=== PATIENT | male | born 1955 | race Caucasian/White ===

== ENCOUNTER 2018-03-04 20:28 | Inpatient (IN) | payer OTHER ==
[2018-03-04] MEDS ORDERED: Acetaminophen TAB* 325 MG PO ONE (20:50)
[2018-03-04] MEDS ORDERED: Albuterol/Ipratropium NEB.SOL* Albuterol 2.5 MG/Ipratropium 0.5 MG 3 ML INH ONE (20:50)
[2018-03-04] MEDS: NS 0.9% 1000 ML*IV.FLUID IV ONE ×2 (21:19→23:59)
--- NOTE | 2018-03-04 21:42 | ED ---
Jose Calvillo Tecjoon, scribed for Arben Charles MD on 03/04/18 at 2054 . HPI Febrile Illness - HPI Summary HPI Summary: This patient is a 62 year old male presenting to [facility] accompanied by daughter with a chief complaint of febrile illness since approx. 8 days ago. The pain is rated 0/10 in severity. Symptoms aggravated by nothing. Symptoms alleviated by nothing. Patient additionally reports diaphoretic, chills, cough, SOB, rhinorrhea, sore throat, nausea. Patient denies diarrhea - History of Current Complaint Chief Complaint: EDShortnessOfBreath Time Seen by Provider: 03/04/18 20:39 Hx Obtained From: Patient Onset/Duration: Started Days Ago - 8, Still Present Timing: Constant Initial Severity: Moderate Current Severity: Moderate Pain Intensity: 0 Pain Scale Used: 0-10 Numeric Aggravating Factors: Nothing Alleviating Factors: Nothing Associated Signs and Symptoms: Negative - diarrhea, Other: - diaphoresis, chills , cough, SOB, rhinorrhea, sore throat, nausea - Allergy/Home Medications Allergies/Adverse Reactions: Allergies Allergy/AdvReac Type Severity Reaction Status Date / Time No Known Allergies Allergy Verified 03/04/18 20:32 Home Medications: Home Medications Albuterol HFA INHALER* [Ventolin HFA Inhaler*] 2 puff INH Q4H PRN 03/04/18 [ History Confirmed 03/04/18] Aspirin 81 mg CHEW TAB* [Aspirin Low Dose TAB*] 81 mg PO DAILY 03/04/18 [ History Confirmed 03/04/18] Cilostazol TAB* [Pletal TAB*] 100 mg PO BID 03/04/18 [History Confirmed 03/04/18 ] Levothyroxine TAB* [Synthroid TAB*] 75 mcg PO DAILY 03/04/18 [History Confirmed 03/04/18] Lisinopril/HCTZ 10/12.5(NF) [Zestoretic 10/12.5(NF)] 1 tab PO DAILY 03/04/18 [ History Confirmed 03/04/18] Metoprolol Succinate XL TAB* [Toprol XL TAB*] 25 mg PO DAILY 03/04/18 [History Confirmed 03/04/18] Simvastatin (NF) [Zocor (NF)] 40 mg PO DAILY 03/04/18 [History Confirmed ] PMH/Surg Hx/FS Hx/Imm Hx Previously Healthy: No Endocrine/Hematology History: Reports: Hx Thyroid Disease Denies: Hx Diabetes Cardiovascular History: Reports: Hx Hypercholesterolemia, Hx Hypertension Respiratory History: Reports: Hx Chronic Obstructive Pulmonary Disease (COPD) Opthamlomology History: Denies: Hx Legally Blind EENT History: Denies: Hx Deafness Infectious Disease History: No Infectious Disease History: Denies: Traveled Outside the [place] in Last 30 Days - Family History Known Family History: Positive: Hypertension - Social History Lives: With Family Alcohol Use: None Hx Tobacco Use: Yes Smoking Status (MU): Former Smoker Type: Cigarettes Review of Systems Positive: Fever, Chills, Skin Diaphoresis Positive: Sore Throat, Nasal Discharge Positive: Shortness Of Breath, Cough Positive: Nausea. Negative: Diarrhea All Other Systems Reviewed And Are Negative: Yes Physical Exam - Summary Physical Exam Summary: Appearance: Well appearing, no pain distress Skin: hot and light diaphoresis Head/face: normal Eyes: EOMI, SVITLANA ENT: normal Neck: supple, non-tender Respiratory: Bronchial breath sounds in the periphery right lung and left upper lobe, Occasional wheeze Cardiovascular: tachycardic, but regular, pulses symmetrical Abdomen: No lower abd tenderness Bowel Sounds: present Musculoskeletal: normal, strength/ROM intact Neuro: normal, sensory motor intact, A&Ox3 Triage Information Reviewed: Yes Vital Signs On Initial Exam: Initial Vitals Temp Pulse Resp BP Pulse Ox 101.9 F 109 22 141/90 91 03/04/18 20:28 03/04/18 20:28 03/04/18 20:28 03/04/18 20:28 03/04/18 20:28 Vital Signs Reviewed: Yes Diagnostics - Vital Signs Vital Signs Temp Pulse Resp BP Pulse Ox 03/04/18 20:28 101.9 F 109 22 141/90 91 - Laboratory Lab Statement: Any lab studies that have been ordered have been reviewed, and results considered in the medical decision making process. Course/Dx - Course Course Of Treatment: This patient is a 62 year old male presenting to [facility] accompanied by daughter with a chief complaint of febrile illness since approx. 8 days ago. An EKG, taken 2041, reveals 92 BPM, single PVC, normal axis, nonspecific ST, diffuse Q waves. CXR ordered. Bloodwork Obtained. In the ED course the patient was given Tylenol, Albuterol. Patient will be diagnosed with sepsis and influenza-like illness. Patient will be signed out to Dr. Sin, awaiting CXR and labwork - Febrile Illness Differential Diagnoses: Pneumonia, Sepsis, Other: - flu, bronchitis/viral - Diagnoses Provider Diagnoses: Influenza-like illness, Sepsis Discharge - Sign-Out/Discharge Documenting (check all that apply): Sign-Out Patient Signing out patient TO: Jani Sin - Discharge Plan Condition: Stable Discharge Disposition Comment: signed out to Dr. Sin Referrals: Colleen Lopez, SLITTER CREASER SLOTTER OPERATOR [Primary Care Provider] - - Billing Disposition and Condition Condition: STABLE The documentation as recorded by the Jose tam Tecjoon accurately reflects the service I personally performed and the decisions made by , Arben Charles MD.
[2018-03-04 21:47] LABS: INR 0.97 (0.77-1.02)
--- NOTE | 2018-03-04 21:54 | RAD ---
HISTORY: Cough, shortness of breath COMPARISONS: August 22, 2012 VIEWS: 4: Frontal dual-energy and lateral views of the chest. FINDINGS: CARDIOMEDIASTINAL SILHOUETTE: The cardiomediastinal silhouette is normal. SUNNY: The sunny are normal. PLEURA: The costophrenic angles are sharp. No pleural abnormalities are noted. LUNG PARENCHYMA: There is hyperinflation. There is patchy alveolar opacification of the right lower lung. ABDOMEN: The upper abdomen is clear. There is no subphrenic gas. BONES AND SOFT TISSUES: No bone or soft tissue abnormalities are noted. OTHER: None. IMPRESSION: COPD. PATCHY AIRSPACE DISEASE OF THE RIGHT LOWER LUNG. RECOMMEND FOLLOW-UP UNTIL RESOLUTION TO EXCLUDE UNDERLYING PULMONARY PARENCHYMAL PATHOLOGY.
[2018-03-04 21:56] LABS: EGFR Non-African American 58.2 (>60)
[2018-03-04 21:58] LABS: ABS Basophils 0.1 10^3/ul (0-0.2); ABS Eosinophils 0 10^3/ul (0-0.6); ABS Lymphocytes 0.9 10^3/ul (1.0-4.8); ABS Monocytes 1.2 10^3/ul (0-0.8); ABS Neutrophils 8.9 10^3/ul (1.5-7.7); ABS Nucleated RBC 0 10^3/ul; Eosinophil % 0 % (0-6); Hematocrit 47 % (42-52); Hemoglobin 16.9 g/dl (14.0-18.0); Lymphocyte % 8.5 % (25-47); Mean Corpuscular HGB Conc 36 g/dl (31-36); Mean Corpuscular Hemoglobin 32 pg (27-31); Mean Corpuscular Volume 89 fL (80-94); Mean Platelet Volume 7.5 um3 (7.4-10.4); Nucleated Red Blood Cells % 0; Platelet Count 213 10^3/ul (150-450); Red Blood Count 5.36 10^6/ul (4.0-5.4); Red Cell Distribution Width 13 % (10.5-15); White Blood Count 11.1 10^3/ul (3.5-10.8)
[2018-03-04] MEDS ORDERED: methylPREDNISolone 125 MG* 2 ML VIAL IV ONE (22:00)
[2018-03-04] MEDS ORDERED: Levofloxacin 750 MG IVPREMIX(* 750 MG/150 ML BAG IVPB ONE (22:00)
[2018-03-04] MEDS ORDERED: Magnesium Sulfate 2 GM IV* 2 GM/50 ML BAG IVPB ONE (22:01)
[2018-03-04] MEDS ORDERED: Potassium Chlor TAB* 20 MEQ TAB.ER PO ONE (22:03)
[2018-03-04] MEDS ORDERED: Albuterol 2.5 MG/3 ML NEB.SOL* (0.083%) ONE (22:16)
[2018-03-04] MEDS: Albuterol 2.5 MG/3 ML NEB.SOL* (0.083%) INH SCH (22:19)
[2018-03-04] MEDS ORDERED: Ondansetron INJ* 2 MG/ML VIAL IV PRN (22:36)
[2018-03-04] MEDS ORDERED: Docusate CAP* 100 MG PO PRN (22:36)
[2018-03-04] MEDS ORDERED: Senna TAB PO PRN (22:36)
[2018-03-04] MEDS ORDERED: Al Hydrox/Mg Hydrox/Simet LIQ* 30 ML UDC PO PRN (22:36)
[2018-03-04] MEDS ORDERED: NS 0.9% 1000 ML* 1,000 ML IV ONE (22:38)
[2018-03-04] MEDS ORDERED: Albuterol 2.5 MG/3 ML NEB.SOL* (0.083%) INH PRN (22:39)
[2018-03-04] MEDS ORDERED: Albuterol/Ipratropium NEB.SOL* Albuterol 2.5 MG/Ipratropium 0.5 MG 3 ML INH PRN (22:39)
[2018-03-04] MEDS ORDERED: GuaiFENesin DM* 5 ML UDC PO PRN (22:40)
--- NOTE | 2018-03-04 22:57 | ED ---
Dena Calvillo Nilda, scribed for Jani Sin MD on 03/04/18 at 2136 . Progress - Progress Note Progress Note: This pt was s/o by Dr. Charles, pending dispo, awaiting CXR. CXR, per radiologist, reveals COPD. PATCHY AIRSPACE DISEASE OF THE RIGHT LOWER LUNG. RECOMMEND FOLLOW-UP UNTIL RESOLUTION TO EXCLUDE UNDERLYING PULMONARY PARENCHYMAL PATHOLOGY. Dr. Sin has reviewed this radiology report. Course/Dx - Course Course Of Treatment: This pt was s/o by Dr. Charles, pending dispo, awaiting CXR. Pt is a 62 y/o M with Hx COPD who came with difficulty breathing. Exam shows decreased breath sounds. CXR reveals lateral lobe PNA. Pt will be admitted for IV abx and observation. - Diagnoses Provider Diagnoses: COPD (chronic obstructive pulmonary disease), PNA (pneumonia) - Provider Notifications Discussed Care Of Patient With: Vane Medina - Hospitalist Time Discussed With Above Provider: 22:08 Instructed by Provider To: Admit As Inpatient Discharge - Sign-Out/Discharge Documenting (check all that apply): Discharge - admit - Discharge Plan Condition: Stable Disposition: ADMITTED TO [facility] Referrals: Colleen Lopez, GRIT REMOVAL OPERATOR [Primary Care Provider] - The documentation as recorded by the Dena tam Nilda accurately reflects the service I personally performed and the decisions made by January leung Abdul, MD.
--- NOTE | 2018-03-05 00:34 | HP ---
CC: Colleen Lopez NP * HISTORY AND PHYSICAL: DATE OF ADMISSION: 03/04/18 TIME OF EVALUATION: 2199 PRIMARY CARE PHYSICIAN: Colleen Lopez NP CHIEF COMPLAINT: Shortness of breath and fever. HISTORY OF PRESENT ILLNESS: This is a 62-year-old male with past medical history of COPD on room air, who presents to the emergency room with worsening cough and shortness of breath. The patient states he has had a cold that began last week on the . He states he began having fevers on the . On the , he stated he was feeling better and the following day, he felt like he was hit by a ton of bricks. The following day, he tried to walk up to the store , he was very fatigued and out of it. He has not been able to eat or drink very much due to so much gagging on mucus and having posttussive emesis. He has been nauseated, no abdominal pain or diarrhea, decreased urine output. No rash. He has had a headache off and on. He has been slightly short of breath with productive cough. He states he has had chest pain when he coughs. He has been using his albuterol inhaler, but it has not been helping much. He has really had no issues with his COPD in the past. Otherwise, the remaining review of systems negative. In the emergency room, the patient has had labs and imaging. He was given Levaquin 750 mg, Tylenol, albuterol nebs, Solu-Medrol, potassium chloride and 1 L of fluid and was referred to the hospitalist service for further evaluation. PAST MEDICAL HISTORY: 1. Hypertension. 2. Hyperlipidemia. 3. COPD on room air. 4. Hypothyroidism. 5. Peripheral vascular disease. 6. Coronary artery disease, status post OH, balloon angioplasty in 1995. MEDICATIONS: 1. Metoprolol succinate 25 mg p.o. daily. 2. Lisinopril/hydrochlorothiazide 10/12.5 mg daily. 3. Simvastatin 40 mg daily. 4. Aspirin 81 mg daily. 5. Albuterol inhaler 2 puffs q.4 hours as needed. 6. Synthroid 75 mcg daily. 7. Pletal 100 mg p.o. b.i.d. ALLERGIES: No known drug allergies. FAMILY HISTORY: Mother from car accident. Father in his 70' s from coronary artery disease. SOCIAL HISTORY: The patient lives alone, independent of ADL's. He quit smoking a few years ago. At that time, he was a pack per day for 40 years. He quit drinking over 20 years ago. He was a heavy drinker. 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 Healthcare proxy is his daughter, Thiago. CODE STATUS: Full. REVIEW OF SYSTEMS: A 14-point review of systems as mentioned in the HPI, otherwise negative. PHYSICAL EXAMINATION GENERAL: In no acute distress. Resting comfortably with his daughter at the bedside. VITAL SIGNS: T-max 101.9, pulse rate 97, respiratory rate 16, oxygen saturation 94% on 2 L, blood pressure 101/63. HEENT: Head is normocephalic. Pupils equal and reactive. Oropharynx: Mucous membranes are dry. Poor dentition. NECK: Supple. No lymphadenopathy. RESPIRATORY: Diminished breath sounds. Bilateral rhonchi with expiratory wheezing. No increased work of breathing. He is noted to be tachypneic. CARDIAC: Tachycardia with a systolic murmur most prominent at the left sternal base. ABDOMEN: Soft, nontender, nondistended. EXTREMITIES: No clubbing, cyanosis, or edema. +1 DPs. NEUROLOGIC: Alert and oriented x3. No gross focal neurologic deficits. DIAGNOSTIC STUDIES/LAB DATA: White count 11.1, hemoglobin 16.9, hematocrit 47 , platelets 213,000. INR 0.97. Sodium 128, potassium 3.3, chloride 90, BUN 24 , creatinine 1.25, glucose 174, total bili 1.3, CRP 51.8, lactic acid 3.4. Radiographic data: Chest x-ray shows patchy air space disease of the right lower lung. Recommend followup until resolution to exclude underlying pulmonary parenchyma pathology. EKG shows normal sinus rhythm. ASSESSMENT: This is a 62-year-old man with past medical history of chronic obstructive pulmonary disease on room air, who presents to the emergency room with worsening respiratory symptoms of cough, shortness of breath, and fever. 1. Cough, shortness of breath, and fever. Assessment: The patient with chronic obstructive pulmonary disease exacerbation and now community-acquired pneumonia. Plan: We will continue him on prednisone, albuterol and DuoNeb treatments. I will give him another liter of fluid and place him on fluids and continue him on Levaquin. We will check legionella and pneumococcal antigen and place him on cough medicine and repeat a trop and lactic after he has been hydrated. 2. Acute kidney injury likely in the setting of his decreased p.o. prerenal azotemia. We will give him fluids and repeat his labs in the morning. Chronic medical problems: 1. History of coronary artery disease. Resume his metoprolol and aspirin. We will hold his lisinopril and hydrochlorothiazide with his systolic blood pressures and volume depletion. 2. Hypothyroidism. Resume his Synthroid. 3. Peripheral vascular disease. Continue his cilostazol. 4. Hyperlipidemia. We do not have simvastatin on formulary, we will hold this. 5. FEN: Heart healthy diet. 6. DVT prophylaxis: The patient scores moderate risk. Place him on heparin subcu t.i.d. 7. Code status: Full code. TIME SPENT: Greater than 50 minutes were spent doing the history and physical, more than half the time was spent in direct patient contact. [id number]/[facility] #: [id number] CATHI
[2018-03-05] MEDS: NS 0.9% 1000 ML* 1,000 ML IV SCH ×3 (01:31→21:57)
[2018-03-05 04:48] LABS: Urine Appearance Clear; Urine Blood 1+ (Negative); Urine Color Yellow; Urine Ketones 1+ (Negative); Urine Protein Negative (Negative); Urine Specific Gravity 1.016 (1.010-1.030); Urine Urobilinogen Negative (Negative)
[2018-03-05 05:36] LABS: ABS Basophils 0 10^3/ul (0-0.2); ABS Eosinophils 0 10^3/ul (0-0.6); ABS Lymphocytes 0.3 10^3/ul (1.0-4.8); ABS Monocytes 0.7 10^3/ul (0-0.8); ABS Neutrophils 6.4 10^3/ul (1.5-7.7); ABS Nucleated RBC 0 10^3/ul; Eosinophil % 0 % (0-6); Hematocrit 43 % (42-52); Hemoglobin 15.1 g/dl (14.0-18.0); Lymphocyte % 4.3 % (25-47); Mean Corpuscular HGB Conc 35 g/dl (31-36); Mean Corpuscular Hemoglobin 32 pg (27-31); Mean Corpuscular Volume 90 fL (80-94); Mean Platelet Volume 7.2 um3 (7.4-10.4); Nucleated Red Blood Cells % 0.1; Platelet Count 195 10^3/ul (150-450); Red Blood Count 4.78 10^6/ul (4.0-5.4); Red Cell Distribution Width 13 % (10.5-15); White Blood Count 7.5 10^3/ul (3.5-10.8)
[2018-03-05] MEDS: Heparin VIAL(*) 5000 UNITS/ML VIAL (FIVE THOUSAND) SUBCUT SCH ×3 (05:43→20:21)
[2018-03-05] MEDS: Levothyroxine TAB* 75 MCG TAB PO SCH (05:43)
[2018-03-05 05:51] LABS: EGFR Non-African American 74.4 (>60)
[2018-03-05] MEDS ORDERED: NS 0.9% 500 ML* 500 ML IV ONE (06:12)
[2018-03-05] MEDS: predniSONE TAB* 20 MG PO SCH (08:19)
[2018-03-05] MEDS: Aspirin 81 mg CHEW TAB* 81 MG TAB.CHEW PO SCH (08:20)
[2018-03-05] MEDS: Metoprolol Succinate XL TAB* 25 MG PO SCH (08:20)
[2018-03-05] MEDS: Cilostazol TAB* 100 MG PO SCH ×2 (08:20→20:21)
[2018-03-05] MEDS: Atorvastatin* 20 MG TAB PO SCH (08:20)
--- NOTE | 2018-03-05 10:29 | PN ---
Subjective Date of Service: 03/05/18 Interval History: Patient seen and examined. States he feels his breathing is better, however he is still on O2 and appears to be using accessory musckles. Denies chest pain, denies fever or chills, no n/v. States he has a back ache and right hip pain 2/ 2 his OA. Objective Active Medications: Acetaminophen (Tylenol Tab*) 650 mg PO Q4H PRN PRN Reason: FEVER/PAIN Al Hydrox/Mg Hydrox/Simethicone (Maalox Plus*) 30 ml PO Q6H PRN PRN Reason: INDIGESTION Albuterol (Ventolin 2.5 Mg/3 Ml Neb.Meghan*) 2.5 mg INH Q2H PRN PRN Reason: SOB/WHEEZING Albuterol/Ipratropium (Duoneb (Albuterol 2.5 Mg/Ipratropium 0.5 Mg)) 1 neb INH Q4H PRN PRN Reason: SOB/WHEEZING Aspirin (Aspirin 81 Mg Chew Tab*) 81 mg PO DAILY [facility] Last Admin: 03/05/18 08:20 Dose: 81 mg Atorvastatin Calcium (Lipitor*) 20 mg PO DAILY [facility] Last Admin: 03/05/18 08:20 Dose: 20 mg Cilostazol (Pletal Tab*) 100 mg PO BID [facility] Last Admin: 03/05/18 08:20 Dose: 100 mg Docusate Sodium (Colace Cap*) 100 mg PO BID PRN PRN Reason: CONSTIPATION Guaifenesin/Dextromethorphan (Robitussin Dm*) 5 ml PO Q4H PRN PRN Reason: COUGH Heparin Sodium (Porcine) (Heparin Vial(*)) 5,000 units SUBCUT Q8HR [facility] Last Admin: 03/05/18 05:43 Dose: 5,000 units Sodium Chloride (Ns 0.9% 1000 Ml*) 1,000 mls @ 125 mls/hr IV PER RATE [facility] Last Admin: 03/05/18 01:31 Dose: 125 mls/hr Levofloxacin/Dextrose (Levaquin 750 Mg Ivpremix(*)) 750 mg in 150 mls @ 100 mls /hr IVPB Q48H [facility] Levothyroxine Sodium (Synthroid Tab*) 75 mcg PO DAILY@0600 [facility] Last Admin: 03/05/18 05:43 Dose: 75 mcg Metoprolol Succinate (Toprol Xl Tab*) 25 mg PO DAILY [facility] Last Admin: 03/05/18 08:20 Dose: 25 mg Ondansetron HCl (Zofran Inj*) 4 mg IV Q4H PRN PRN Reason: NAUSEA/VOMITING Prednisone (Deltasone Tab*) 40 mg PO DAILY [facility] Last Admin: 03/05/18 08:19 Dose: 40 mg Senna (Senokot Tab*) 1 tab PO BID PRN PRN Reason: CONSTIPATION Vital Signs - 8 hr 03/05/18 03/05/18 07:49 08:00 Temperature 97.8 F Pulse Rate 83 Respiratory 18 Rate Blood Pressure 142/56 (mmHg) O2 Sat by Pulse 95 94 Oximetry Oxygen Devices in Use Now: Nasal Cannula Appearance: Alert, NAD Eyes: No Scleral Icterus, PERRLA Ears/Nose/Mouth/Throat: Mucous Membranes Moist, - - poor dentition Neck: Trachea Midline Respiratory: - - mild tachypnea, increased WOB, diminished breath sounds with expiratory wheeze on the right Cardiovascular: NL Sounds; No Murmurs; No JVD, RRR, - - 4 beats Vtach on tele Abdominal: NL Sounds; No Tenderness; No Distention Skin: No Rash or Ulcers Neurological: Alert and Oriented x 3, NL Gait Nutrition: Taking PO's Result Diagrams: 03/05/18 05:10 03/05/18 05:10 Microbiology and Other Data: Microbiology 03/05/18 04:20 Legionella Urinary Antigen - Final Urine Negative Legionella Antigen Streptococcus pneumoniae Ag Screen - Final Negative S. pneumo Antigen Diagnostic Imaging: Patient Name: LC LOVETT SR Medical Record#: [id number] Ordering Physician: Arben Charles MD Acct.#: [id number] : 1955 Age: 62 Sex: M Location: EMERGENCY DEPARTMENT Exam Date: 03/04/182039 ADM Status: REG ER Order Information: CHEST PA & LAT 2 [facility] Accession Number: [id number] CPT: 75104 HISTORY: Cough, shortness of breath COMPARISONS: August 22, 2012 VIEWS: 4: Frontal dual-energy and lateral views of the chest. FINDINGS: CARDIOMEDIASTINAL SILHOUETTE: The cardiomediastinal silhouette is normal. ERNESTO: The ernesto are normal. PLEURA: The costophrenic angles are sharp. No pleural abnormalities are noted. LUNG PARENCHYMA: There is hyperinflation. There is patchy alveolar opacification of the right lower lung. ABDOMEN: The upper abdomen is clear. There is no subphrenic gas. BONES AND SOFT TISSUES: No bone or soft tissue abnormalities are noted. OTHER: None. IMPRESSION: COPD. PATCHY AIRSPACE DISEASE OF THE RIGHT LOWER LUNG. RECOMMEND FOLLOW-UP UNTIL RESOLUTION TO EXCLUDE UNDERLYING PULMONARY PARENCHYMAL PATHOLOGY. <Electronically signed by Rupert Kaur MD in OV> 03/04/182150 Dictated By: Rupert Kaur MD Dictated Date/Time: 03/04/182150 Transcribed Date/Time: 03/04/182149 Copy to: Assess/Plan/Problems-Billing Assessment: This is a 62 year old male with hx of COPD, CAD, hHLP, hypothyroid, PVD; that presented to the ER with c/o SOB, and subjective fever and chills at home, admitted for COPD exac, PNA, GRECIA. - Patient Problems (1) CAP (community acquired pneumonia) Code(s): J18.9 - PNEUMONIA, UNSPECIFIED ORGANISM SNOMED Code(s): 189605549 Comment: - Follow cultures to tailor atbx therapy - Continue levaquin 750mg daily and follow renal fx - Nebs and mucinex (2) COPD with exacerbation Code(s): J44.1 - CHRONIC OBSTRUCTIVE PULMONARY DISEASE W (ACUTE) EXACERBATION SNOMED Code(s): 208925082 Comment: - Continue steroids and taper - O2 as needed - Continue levaquin (3) Acute respiratory failure with hypoxia Code(s): J96.01 - ACUTE RESPIRATORY FAILURE WITH HYPOXIA SNOMED Code(s): 68653553 Comment: - 2/2 to COPD and CAP - Titrate O2 to keep sats >88% (4) Hypokalemia Code(s): E87.6 - HYPOKALEMIA SNOMED Code(s): 87981582 Comment: - Improved today, continue to monitor lytes (5) History of coronary artery disease Code(s): Z86.79 - PERSONAL HISTORY OF OTHER DISEASES OF THE CIRCULATORY SYSTEM SNOMED Code(s): 388660651 Comment: - Continue metoprolol and ASA - Continue tele - 4 beats VTach on tele this am, asymptomatic - Give additional gram of Mag and follow lytes (6) PVD (peripheral vascular disease) with claudication Code(s): I73.9 - PERIPHERAL VASCULAR DISEASE, UNSPECIFIED SNOMED Code(s): 111181365 Comment: - Continue cilostazol (7) Hyperlipidemia Code(s): E78.5 - HYPERLIPIDEMIA, UNSPECIFIED SNOMED Code(s): 00899110 Comment: - Continue statin (8) HTN (hypertension) Current Visit: Yes Status: Acute Code(s): I10 - ESSENTIAL (PRIMARY) HYPERTENSION SNOMED Code(s): 75839488 (9) DVT prophylaxis Code(s): GWI8556 - SNOMED Code(s): 804219024 Comment: - HSQ (10) Full code status Code(s): Z78.9 - OTHER SPECIFIED HEALTH STATUS SNOMED Code(s): 484033741 Status and Disposition: Remain inpatient
[2018-03-05] MEDS ORDERED: Magnesium Sulfate 1 GM IV* 1 GM/100 ML BAG IV ONE (10:56)
[2018-03-05] MEDS: Acetaminophen TAB* 325 MG PO PRN (20:21)
[2018-03-06] MEDS: Heparin VIAL(*) 5000 UNITS/ML VIAL (FIVE THOUSAND) SUBCUT SCH ×2 (05:32→14:02)
[2018-03-06] MEDS: Levothyroxine TAB* 75 MCG TAB PO SCH (05:33)
[2018-03-06] MEDS: NS 0.9% 1000 ML* 1,000 ML IV SCH ×2 (06:08→13:59)
[2018-03-06] MEDS: predniSONE TAB* 20 MG PO SCH (10:06)
[2018-03-06] MEDS: Cilostazol TAB* 100 MG PO SCH (10:06)
[2018-03-06] MEDS: Aspirin 81 mg CHEW TAB* 81 MG TAB.CHEW PO SCH (10:06)
[2018-03-06] MEDS: Atorvastatin* 20 MG TAB PO SCH (10:06)
[2018-03-06] MEDS: Metoprolol Succinate XL TAB* 25 MG PO SCH (10:06)
[2018-03-06 10:52] LABS: EGFR Non-African American 86.1 (>60)
[2018-03-06] MEDS ORDERED: KCL 10 MEQ/50 ML IVPREMIX* 10 MEQ/50 ML BAG IV ONE (11:08)
[2018-03-06] MEDS ORDERED: Potassium Chlor TAB* 20 MEQ TAB.ER PO ONE ×2 (11:08→12:54)
[2018-03-06 11:20] VITALS: BP 117/57
--- NOTE | 2018-03-06 11:26 | PN ---
Subjective Date of Service: 03/06/18 Interval History: Patient seen and examined at bedside. I was called earlier due to occasional 3- 4 Vtachs beat on his strip, seems to be a chronic issue. Patient denies any chest pain, palpitations or SOB. Reports "feeling his heart beats" on occasions since he was a kid. Labs, including Mag level were ordered prior to seeing the patient. He notes breathing easily, coughing less bringing more sputum out. Denies any dyspnea at rest, orthopnea, fever or chills. He uses no oxygen at home. Appetite is good, ambulatory and has no c/o today. Family History: Unchanged from Admission Social History: Unchanged from Admission Past Medical History: Unchanged from Admission Objective Active Medications: Acetaminophen (Tylenol Tab*) 650 mg PO Q4H PRN PRN Reason: FEVER/PAIN Last Admin: 03/05/18 20:21 Dose: 650 mg Al Hydrox/Mg Hydrox/Simethicone (Maalox Plus*) 30 ml PO Q6H PRN PRN Reason: INDIGESTION Albuterol (Ventolin 2.5 Mg/3 Ml Neb.Meghan*) 2.5 mg INH Q2H PRN PRN Reason: SOB/WHEEZING Albuterol/Ipratropium (Duoneb (Albuterol 2.5 Mg/Ipratropium 0.5 Mg)) 1 neb INH Q4H PRN PRN Reason: SOB/WHEEZING Aspirin (Aspirin 81 Mg Chew Tab*) 81 mg PO DAILY [facility] Last Admin: 03/06/18 10:06 Dose: 81 mg Atorvastatin Calcium (Lipitor*) 20 mg PO DAILY [facility] Last Admin: 03/06/18 10:06 Dose: 20 mg Cilostazol (Pletal Tab*) 100 mg PO BID [facility] Last Admin: 03/06/18 10:06 Dose: 100 mg Docusate Sodium (Colace Cap*) 100 mg PO BID PRN PRN Reason: CONSTIPATION Guaifenesin/Dextromethorphan (Robitussin Dm*) 5 ml PO Q4H PRN PRN Reason: COUGH Heparin Sodium (Porcine) (Heparin Vial(*)) 5,000 units SUBCUT Q8HR [facility] Last Admin: 03/06/18 05:32 Dose: 5,000 units Sodium Chloride (Ns 0.9% 1000 Ml*) 1,000 mls @ 125 mls/hr IV PER RATE [facility] Last Admin: 03/06/18 06:08 Dose: 125 mls/hr Levofloxacin/Dextrose (Levaquin 750 Mg Ivpremix(*)) 750 mg in 150 mls @ 100 mls /hr IVPB Q48H [facility] Levothyroxine Sodium (Synthroid Tab*) 75 mcg PO DAILY@0600 [facility] Last Admin: 03/06/18 05:33 Dose: 75 mcg Metoprolol Succinate (Toprol Xl Tab*) 25 mg PO DAILY [facility] Last Admin: 03/06/18 10:06 Dose: 25 mg Ondansetron HCl (Zofran Inj*) 4 mg IV Q4H PRN PRN Reason: NAUSEA/VOMITING Prednisone (Deltasone Tab*) 40 mg PO DAILY [facility] Last Admin: 03/06/18 10:06 Dose: 40 mg Senna (Senokot Tab*) 1 tab PO BID PRN PRN Reason: CONSTIPATION Vital Signs - 8 hr 03/06/18 03/06/18 03/06/18 03:30 07:21 08:17 Temperature 97.6 F 97.8 F Pulse Rate 81 86 80 Respiratory 20 17 16 Rate Blood Pressure 110/57 118/67 (mmHg) O2 Sat by Pulse 94 95 96 Oximetry 03/06/18 11:14 Temperature 98.0 F Pulse Rate 71 Respiratory 15 Rate Blood Pressure 117/57 (mmHg) O2 Sat by Pulse 97 Oximetry Oxygen Devices in Use Now: Nasal Cannula Appearance: Appears comfortable, alert and oriented. Sitting on his bed, talking in full sentences, in NAD. Eyes: No Scleral Icterus, PERRLA Ears/Nose/Mouth/Throat: Mucous Membranes Moist Neck: NL Appearance and Movements; NL JVP, Trachea Midline Respiratory: Symmetrical Chest Expansion and Respiratory Effort, - - Decreased basilar breath sounds with minimal expiratory wheezing. No rales or rhonchi. No chest retraction. Cardiovascular: NL Sounds; No Murmurs; No JVD, RRR Abdominal: NL Sounds; No Tenderness; No Distention Extremities: No Edema Neurological: Alert and Oriented x 3 Nutrition: Taking PO's Result Diagrams: 03/05/18 05:10 03/06/18 10:16 Additional Lab and Data: Magnesium 2.1 Microbiology and Other Data: Microbiology 03/05/18 04:20 Legionella Urinary Antigen - Final Urine Negative Legionella Antigen Streptococcus pneumoniae Ag Screen - Final Negative S. pneumo Antigen Assess/Plan/Problems-Billing Assessment: This is a 62 year old male with hx of COPD, CAD, hHLP, hypothyroid, PVD; that presented to the ER with c/o SOB, and subjective fever and chills at home, admitted for COPD exac, PNA, GRECIA. - Patient Problems (1) CAP (community acquired pneumonia) Current Visit: Yes Comment: - Sputum cultures pending, but seems to improving clinically on quinolones. - Continue levaquin 750mg daily and follow renal fx - Nebs and mucinex (2) COPD with exacerbation Current Visit: Yes Comment: - Continue steroids and taper - O2 as needed; will assess for home O2 need if indicated. He seems to maintain good O2 sats on 2L via NC - Continue levaquin (3) HTN (hypertension) Current Visit: Yes Comment: Controlled with beta blochade (4) History of coronary artery disease Current Visit: Yes Comment: - Continue metoprolol and ASA - Continue tele - 3-4 beats VTach on tele this am, asymptomatic, unchanged from yesterday - Lytes checked, normal Mag, slight hypokalemia, will replace K (5) Hyperlipidemia Current Visit: Yes Comment: - Continue statin (6) Hypokalemia Current Visit: Yes Comment: - Replace K with PO KCL (7) DVT prophylaxis Current Visit: Yes Comment: - HSQ (8) Full code status Current Visit: Yes Status and Disposition: Mr. Puri appears to be doing well. His breathing had significantly improved past day or two. I discussed with him possible discharge to home today. We will assess if he needs O2 supplementation at home. Likely to switch to PO quinolones , Prednisone tapered dose and also suggested F/U with Dr. Barros for his COPD management.
[2018-03-06] MEDS: Acetaminophen TAB* 325 MG PO PRN (14:01)
[2018-03-06] MEDS ORDERED: Levofloxacin 750 MG IVPREMIX(* 750 MG/150 ML BAG IVPB SCH (23:00)
--- NOTE | 2018-03-07 23:05 | DS ---
AMENDED REPORT NOW INCLUDES COSIGNER DESIGNATION - ESIGNED BEFORE ADJUSTMENTS CC: Colleen Lopez NP; Dr. Barros * DISCHARGE SUMMARY: DATE OF ADMISSION: 03/04/18 DATE OF DISCHARGE: 03/06/18 ADMITTING PHYSICIAN: Vane Medina MD ATTENDING PHYSICIAN: Kinsey Cervantes MD * (DICTATED BY DORI SOLARES) ADMISSION DIAGNOSES: 1. Chronic obstructive pulmonary disease exacerbation. 2. Hypertension. 3. Hyperlipidemia. 4. Hypothyroidism. 5. Peripheral vascular disease. 6. Coronary artery disease, status post myocardial infarction with balloon angioplasty in 1995. DISCHARGE DIAGNOSES: 1. Chronic obstructive pulmonary disease exacerbation. 2. Hypertension. 3. Hyperlipidemia. 4. Hypothyroidism. 5. Peripheral vascular disease. 6. Coronary artery disease, status post myocardial infarction with balloon angioplasty in 1995. CONSULTATIONS: None. BRIEF MEDICAL HISTORY: Mr. Puri is a pleasant 62-year-old gentleman with past medical history significant for COPD, hypertension, hyperlipidemia, hypothyroidism and coronary artery disease. He presented to the emergency room on 03/04/18 with complaints of worsening cough and shortness of breath. He states that he had a cold that began last week and continued to get progressively worse with fevers prior to his presentation. On the following day , he had tried to walk up the store and noticed to have dyspnea with minimal exertion and eventually got short of breath. He also reports a decreased appetite as well as increased productive cough that leads to emesis. Given his ongoing symptoms, he presented to the emergency room for evaluation. He had a diagnostic workup that revealed mild leukocytosis with white count of 11.5000 and slightly decreased potassium with value of 3.3. He also had a chest x-ray that showed patchy airspace disease consistent with probable COPD exacerbation versus pneumonia. Given his ongoing symptoms, we were asked to see the patient for further evaluation of COPD and to discuss admission. HOSPITAL COURSE: The patient was admitted under hospitalist service and was put on IV hydration as well as Levaquin for prophylactic treatment. He was continued on albuterol and DuoNeb nebulizers as well as a supplemental oxygen. He was checked for Legionella and pneumococcal antigen and found to be negative for both. Repeated troponin and lactic acid were done and his lactic acid eventually normalized after adequate hydration. He was noticed to have slight elevation in his BUN and creatinine related to decreased p.o. intake that was eventually resolved with IV fluids. He had a followup chest x-ray that showed some interval resolution. He continued to improve on the second day of his admission and on exam, he was noted to be alert, oriented and breathing with no labor noted. He maintained a good oxygen saturation after his supplemental oxygen was discontinued, maintaining it above 92%. He was ambulatory out of bed and in a stable condition. He will be discharged to home on 03/06/18 with the following medications. DISCHARGE MEDICATIONS: 1. Albuterol inhaler 2 puffs q.4 hours as needed for shortness of breath. 2. Aspirin 81 mg p.o. daily. 3. Pletal 100 mg p.o. b.i.d. 4. Robitussin DM 1 teaspoon q.4 hours as needed for cough. 5. Levaquin 750 mg p.o. daily x5 days. 6. Synthroid 75 mcg once daily. 7. Lisinopril/hydrochlorothiazide 10/12.5, 1 tablet p.o. daily. 8. Metoprolol 25 mg p.o. daily. 9. Prednisone tapered dose starting at 40 mg daily x2 days, then 30 for 2 days , then 20 for 2 days, then 10 for 2 days, then 5 for 2 days and discontinue. 10. Zocor 40 mg p.o. daily. PROBLEM LIST: 1. Chronic obstructive pulmonary disease exacerbation. The patient had improved with oxygen supplementation, IV antibiotics and steroids as well as nebulizers and mucolytics. He was discharged to home in a stable condition. 2. Community-acquired pneumonia. Sputum cultures were pending, but the patient was improving clinically on quinolones. 3. Hypertension, controlled with beta-tim and hydrochlorothiazide. 4. History of coronary artery disease. Lytes were checked and his potassium was replaced. 5. Hyperlipidemia. He will continue statin. The patient is a full code. Time spent on his discharge was greater than 35 minutes. DORI SOLARES [id number]/CPS #: [id number] MTDD
== END 2018-03-06 16:15 | disposition home or self-care (01) | DRG 139 ==
LOC: ED 20:28 → MED 22:36 → OBSVTOIN 03-05 09:30
PROVIDERS: ADMIT Pediatrics; ATTEND Pediatrics
DX: J18.9 Pneumonia, unspecified organism (principal); J96.01 Acute respiratory failure with hypoxia; J44.1 Chronic obstructive pulmonary disease with (acute) exacerbation; J44.0 Chronic obstructive pulmonary disease with (acute) lower respiratory infection; N17.9 Acute kidney failure, unspecified; I47.2 Ventricular tachycardia; I10 Essential (primary) hypertension; F32.9 Major depressive disorder, single episode, unspecified; E03.9 Hypothyroidism, unspecified; I73.9 Peripheral vascular disease, unspecified; I25.10 Atherosclerotic heart disease of native coronary artery without angina pectoris; M16.11 Unilateral primary osteoarthritis, right hip; M54.9 Dorsalgia, unspecified; E87.6 Hypokalemia; I25.2 Old myocardial infarction; Z98.61 Coronary angioplasty status; Z82.49 Family history of ischemic heart disease and other diseases of the circulatory system; Z87.891 Personal history of nicotine dependence; Z79.82 Long term (current) use of aspirin; Z99.81 Dependence on supplemental oxygen
CPT/HCPCS: 36415; 71046; 80048; 80053; 81003; 81015; 83605; 83735; 83880; 84484; 85025; 85610; 85730; 86140; 87040; 87070; 87077; 87086; 87205; 87502; 87899; 93005; 94640; 94760; 99285; A9270-GY; J1644; J2930; J3475; J7512

== ENCOUNTER 2019-10-30 15:44 | Emergency (ER) | payer MEDICAID, MEDICARE ==
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
[2019-10-30] MEDS ORDERED: Lidocaine 1% w EPI 1:100,000* MDV 20 ML VIAL ONE (16:13)
[2019-10-30 16:38] LABS: ABS Basophils 0.1 10^3/ul (0-0.2); ABS Eosinophils 0.2 10^3/ul (0-0.6); ABS Lymphocytes 1.9 10^3/ul (1.0-4.8); ABS Monocytes 1.1 10^3/ul (0-0.8); Eosinophil % 1.9 %; Hematocrit 46 % (42-52); Hemoglobin 16.2 g/dL (14.0-18.0); Lymphocyte % 20.8 %; Mean Corpuscular HGB Conc 35 g/dL (31-36); Mean Corpuscular Hemoglobin 33 pg (27-31); Mean Corpuscular Volume 94 fL (80-94); Mean Platelet Volume 7.2 fL (7.4-10.4); Platelet Count 272 10^3/uL (150-450); Red Blood Count 4.95 10^6 /uL (4.18-5.48); Red Cell Distribution Width 13 % (10-15); White Blood Count 9.3 10^3/uL (3.5-10.8)
[2019-10-30 16:47] LABS: INR 0.97 (0.82-1.09)
[2019-10-30 16:55] LABS: ALT 14 U/L (7-52); AST 22 U/L (13-39); Albumin 4.2 g/dL (3.2-5.2); Albumin/Globulin Ratio 1.3 (1-3); Alkaline Phosphatase 77 U/L (34-104); Anion Gap 9 mmol/L (2-11); BUN/Creatinine Ratio 19.3 (8-20); Blood Urea Nitrogen 27 mg/dL (6-24); CO2 Carbon Dioxide 24 mmol/L (22-32); Calcium 9.5 mg/dL (8.6-10.3); Chloride 99 mmol/L (101-111); EGFR African American 61.4 (>60); EGFR Non-African American 50.7 (>60); Globulin 3.3 g/dL (2-4); Glucose 125 mg/dL (70-100); Potassium 3.8 mmol/L (3.5-5.0); Sodium 132 mmol/L (135-145); Total Protein 7.5 g/dL (6.4-8.9)
[2019-10-30 17:05] LABS: Alcohol < 10 mg/dL (<10)
[2019-10-30 18:17] VITALS: BP 112/68
== END 2019-10-30 18:15 | disposition home or self-care (01) ==
LOC: ED 15:44
DX: S01.81XA Laceration without foreign body of other part of head, initial encounter (principal); V13.4XXA Pedal cycle driver injured in collision with car, pick-up truck or van in traffic accident, initial encounter; Y93.55 Activity, bike riding; Y92.481 Parking lot as the place of occurrence of the external cause; I10 Essential (primary) hypertension; Z87.891 Personal history of nicotine dependence
CPT/HCPCS: 12015; 36415; 70450; 72125; 80053; 80320; 85025; 85610; 99282; G0480

== ENCOUNTER 2023-05-27 13:19 | Observation (INO) ==
[2023-05-27] MEDS ORDERED: fentaNYL 100 mcg/2 ml 50 MCG/ML VIAL IV SLOW PU ONE (13:30)
[2023-05-27 13:45] LABS: Hematocrit 42.2 % (38-53); Hemoglobin 15.1 g/dL (13.2-16.3); Mean Corpuscular Hemoglobin 32.9 pg (27-33); Mean Corpuscular Hgb Conc 35.7 g/dL (31-36); Mean Corpuscular Volume 92.3 fL (80-97); Red Blood Count 4.58 10^6/uL (4.06-5.63); Red Cell Distribution Width 13.3 % (12-17); White Blood Count 10.3 10^3/uL (3.6-10.2)
[2023-05-27] MEDS ORDERED: Morphine 4 MG/ML VIAL (1 ml) IV ONE ×2 (13:54→15:25)
[2023-05-27 14:08] LABS: ABS Basophils 0.1 10^3/uL (0.0-0.1); ABS Eosinophils 0.1 10^3/uL (0.0-0.5); ABS Lymphocytes 1.4 10^3/uL (1.0-4.8); ABS Monocytes 0.7 10^3/uL (0.0-1.1); ABS Neutrophils 7.9 10^3/uL (1.5-7.6); Eosinophil % 1.3 %; Mean Platelet Volume 7.8 fL (7.5-11.2); Platelet Count 184 10^3/uL (150-450)
[2023-05-27 14:11] LABS: ALT 6 U/L (7-52); Albumin 3.8 g/dL (3.2-5.2); Albumin/Globulin Ratio 1.3 (1-3); Alkaline Phosphatase 65 U/L (35-149); Blood Urea Nitrogen 26 mg/dL (6-24); CO2 Carbon Dioxide 21 mmol/L (22-32); Calcium 8.8 mg/dL (8.6-10.3); Chloride 101 mmol/L (101-111); Creatinine, Serum 1.32 mg/dL (0.67-1.17); Globulin 2.9 g/dL (2-4); Glucose 113 mg/dL (70-100); Lipase 11 U/L (11.0-82.0); Sodium 133 mmol/L (135-145); Total Protein 6.7 g/dL (6.4-8.9); eGFR CKD-EPI 58.4 (>60)
[2023-05-27] MEDS ORDERED: Iodixanol (CONTRAST) 320 MG/ML 100 ML SDV IV ONE (14:18)
[2023-05-27 15:30] LABS: Urine Appearance Clear; Urine Bilirubin Negative (Negative); Urine Blood Negative (Negative); Urine Color Yellow; Urine Glucose Negative (Negative); Urine Ketones Trace (Negative); Urine Nitrite Negative (Negative); Urine Protein Negative (Negative); Urine Specific Gravity 1.023 (1.002-1.030); Urine Urobilinogen Negative (Negative)
[2023-05-27 15:44] LABS: AST 13 U/L (13-39); Anion Gap 11 mmol/L (2-16); Potassium 3.2 mmol/L (3.5-5.0)
[2023-05-27 15:53] LABS: Alcohol, S < 13 mg/dL (<13)
[2023-05-27] MEDS ORDERED: Ondansetron 4 mg VIAL 2 MG/ML 2 ml VIAL IV PRN (17:25)
[2023-05-27] MEDS ORDERED: Morphine 2 MG/ML SYRINGE IV PRN (17:25)
[2023-05-27] MEDS ORDERED: Acetaminophen IV 1 GM/100ML 1,000 MG/100 ML BAG IV PRN (17:26)
[2023-05-27] MEDS ORDERED: Bupivacaine 0.5% SDV PF 30ML VIAL ONE (17:30)
[2023-05-27] MEDS ORDERED: Rocuronium 50 mg VIAL 10 mg/ml 5 ml VIAL (50 mg) ONE ×2 (17:39→17:47)
[2023-05-27] MEDS ORDERED: fentaNYL 250 mcg/5 ml 50 MCG/ML 5 ml VIAL (250 MCG) ONE (17:40)
[2023-05-27] MEDS ORDERED: Midazolam 2 mg/2 ml VIAL 1 mg/ml 2 ml VIAL (2 mg) ONE (17:40)
[2023-05-27] MEDS ORDERED: Lidocaine 2% PF 5 ML VIAL ONE (17:41)
[2023-05-27] MEDS ORDERED: Propofol 10 MG/ML 20 ML BTL ONE (17:42)
[2023-05-27] MEDS ORDERED: ceFAZolin 2 GM in NS PREMIX 2 GM/100 ML BAG IVPB ONE (17:54)
[2023-05-27] MEDS ORDERED: Lactated Ringers 1000 ml BAG 1,000 ML IV SCH ×2 (18:00→23:00)
[2023-05-27] MEDS ORDERED: ceFAZolin 2 GM in NS PREMIX 2 GM/100 ML BAG IVPB SCH (18:30)
[2023-05-27] MEDS ORDERED: Phenylephrine 40 mcg/mL 10mL (400mcg) SYRINGE ONE (21:59)
[2023-05-27] MEDS ORDERED: Dexamethasone IV 4 MG/ML VIAL 1 ml VIAL ONE (22:06)
[2023-05-27] MEDS ORDERED: Ondansetron 4 mg VIAL 2 MG/ML 2 ml VIAL ONE (22:31)
[2023-05-27] MEDS ORDERED: Naloxone 0.4 mg VIAL 0.4 mg/ml 1 ml VIAL IV PRN (22:57)
[2023-05-27] MEDS ORDERED: fentaNYL 100 mcg/2 ml 50 MCG/ML VIAL IV PRN (22:57)
[2023-05-27] MEDS ORDERED: Acetaminophen IV 1 GM/100ML 1,000 MG/100 ML BAG IV ONE ×2 (22:57→23:09)
[2023-05-27] MEDS ORDERED: Acetaminophen IV 1 GM/100ML 0 MG/0 ML BAG IV ONE (23:08)
[2023-05-28] MEDS: KCL 20 MEQ/100 ML IVPREMIX 20 MEQ/100 ML BAG IV SCH ×2 (01:13→04:45)
[2023-05-28 06:37] LABS: Calcium 8.5 mg/dL (8.6-10.3); Creatinine, Serum 1.38 mg/dL (0.67-1.17); Potassium 4.2 mmol/L (3.5-5.0); eGFR CKD-EPI 55.4 (>60)
[2023-05-28 10:23] VITALS: BP 104/62
== END 2023-05-28 13:20 | disposition home or self-care (01) ==
LOC: ED 13:19 → SSU 17:36 → OR 17:36 → SSU 17:39 → SUATTDRO 23:58
PROVIDERS: ADMIT Nurse Practitioner; ATTEND Surgery Surgical Critical Care